=== PATIENT | male | born 1935 | race Caucasian/White ===

== ENCOUNTER 2019-06-20 21:21 | Emergency (ER) | payer MEDICARE, OTHER ==
[~2019-06-20] VITALS: Ht 182.9 cm; Wt 73.2 kg
[2019-06-20 21:26] VITALS: Ht 182.9 cm; Wt 73.2 kg
[2019-06-20] MEDS ORDERED: COUMADIN2 MG PO (21:28)
[2019-06-20] MEDS ORDERED: LYRICA150 MG PO (21:28)
[2019-06-20] MEDS ORDERED: PRAVACHOL20 MG PO (21:28)
[2019-06-20 21:45] LABS: BASOPHILS 0.2 % (0-2); EOSINOPHILS 2.9 % (0-7); HEMATOCRIT 41.5 % (42.0-54.0); HEMOGLOBIN 13.7 g/dL (13.5-17.5); IMMATURE GRANULOCYTES 0.2 % (0-5); LYMPHOCYTES 26.7 % (15-50); MCH 33.1 pg (26.0-34.0); MCV 100.2 fL (80.0-100.0); MEAN PLATELET VOLUME 10.1 fL (7.4-10.4); MONOCYTES 16.9 % (2-11); NEUTROPHILS 53.1 % (40-80); PLATELET COUNT 195 10x3/uL (130-400); RBC 4.14 10x6/uL (4.20-6.10); RDW 14.4 % (11.5-14.5); WBC 5.4 10x3/uL (4.8-10.8)
[2019-06-20 21:54] LABS: APTT 41.5 SECONDS (22.8-39.4); INR 3.11 (0.85-1.17); PROTIME 31.3 SECONDS (11.6-15.0)
[2019-06-20 21:55] LABS: ANION GAP 7.6 mmol/L (8-16); CALCIUM 9.3 mg/dL (8.5-10.1); CARBON DIOXIDE 29.2 mmol/L (21.0-32.0); CREATININE - SERUM 1.2 mg/dL (0.6-1.3); POTASSIUM - SERUM 4.8 mmol/L (3.5-5.1)
[2019-06-20 22:01] LABS: ALBUMIN 3.8 g/dL (3.4-5.0); BILIRUBIN - TOTAL 0.6 mg/dL (0.2-1.3); PROTEIN - SERUM 7.9 g/dL (6.4-8.2)
[2019-06-20 22:17] LABS: APPEARANCE CLEAR (CLEAR); BILIRUBIN NEGATIVE (NEGATIVE); COLOR YELLOW (YELLOW); GLUCOSE NEGATIVE (NEGATIVE); KETONE NEGATIVE (NEGATIVE); NITRITE NEGATIVE (NEGATIVE); PROTEIN NEGATIVE (NEGATIVE); UROBILINOGEN NORMAL (NORMAL)
[2019-06-20 22:18] LABS: WHITE CELLS - URINE 0-5 /hpf (NEGATIVE)
[2019-06-20 22:19] LABS: BACTERIA FEW /hpf (NEGATIVE); MUCUS <1+ /lpf (NONE SEEN)
[2019-06-20 22:23] LABS: UDS - AMPHET NEGATIVE QUAL (NEGATIVE); UDS - BARB NEGATIVE QUAL (NEGATIVE); UDS - BENZO NEGATIVE QUAL (NEGATIVE); UDS - COCAINE NEGATIVE QUAL (NEGATIVE); UDS - OPIATE NEGATIVE QUAL (NEGATIVE); UDS - PCP NEGATIVE QUAL (NEGATIVE); UDS - THC NEGATIVE QUAL (NEGATIVE)
[2019-06-20 23:38] VITALS: BP 118/72
== END 2019-06-20 23:38 | disposition home or self-care (01) ==
LOC: D.ER 21:21
PROVIDERS: Family Medicine
DX: T50.991A Poisoning by other drugs, medicaments and biological substances, accidental (unintentional), initial encounter (principal); F03.90 Unspecified dementia, unspecified severity, without behavioral disturbance, psychotic disturbance, mood disturbance, and anxiety; G30.9 Alzheimer's disease, unspecified

== ENCOUNTER 2019-09-08 12:09 | Inpatient (IN) | payer MEDICARE, OTHER ==
[~2019-09-08] VITALS: Ht 182.9 cm; Wt 67.3 kg
[~2019-09-08 12:09] MED LIST: COUMADIN3 MG PO; LYRICA150 MG PO; PRAVACHOL20 MG PO
[2019-09-08 14:12] LABS: CALC OSMOLALITY 284 mosm/kg (275-300); CALCIUM 8.9 mg/dL (8.5-10.1); CARBON DIOXIDE 31.6 mmol/L (21.0-32.0); CHLORIDE - SERUM 103 mmol/L (98-107); GLUCOSE 95 mg/dL (74-106); POTASSIUM - SERUM 4.5 mmol/L (3.5-5.1); SODIUM 141 mmol/L (136-145); UREA NITROGEN 23 mg/dL (7-18); eGFR NON AFRICAN AMERICAN 75 mL/min (90-120)
[2019-09-08 14:14] LABS: BASOPHILS 0.2 % (0-2); EOSINOPHILS 2.2 % (0-7); HEMATOCRIT 40.7 % (42.0-54.0); HEMOGLOBIN 13.3 g/dL (13.5-17.5); IMMATURE GRANULOCYTES 0.2 % (0-5); LYMPHOCYTES 22.1 % (15-50); MCH 32.9 pg (26.0-34.0); MCHC 32.7 g/dL (31.0-37.0); MCV 100.7 fL (80.0-100.0); MEAN PLATELET VOLUME 10.3 fL (7.4-10.4); MONOCYTES 16.4 % (2-11); NEUTROPHILS 58.9 % (40-80); PLATELET COUNT 189 10x3/uL (130-400); RBC 4.04 10x6/uL (4.20-6.10); RDW 14.9 % (11.5-14.5); WBC 5.1 10x3/uL (4.8-10.8)
[2019-09-08 14:27] LABS: ALBUMIN 3.4 g/dL (3.4-5.0); ALKALINE PHOSPHATASE 77 U/L (46-116); ALT (SGPT) 18 U/L (10-68); BILIRUBIN - TOTAL 0.65 mg/dL (0.2-1.3); MAGNESIUM - SERUM 2.3 mg/dL (1.8-2.4); PROTEIN - SERUM 6.6 g/dL (6.4-8.2); THYROID STIMULATING HORMONE 0.71 uIU/mL (0.36-3.74)
--- NOTE | 2019-09-08 15:00 | NUR ---
URINE TO LAB.
--- NOTE | 2019-09-08 15:05 | NUR ---
SENIOR PSYCH CONTACTED FOR CONSULT.
[2019-09-08 15:10] LABS: APPEARANCE CLEAR (CLEAR); BILIRUBIN NEGATIVE (NEGATIVE); COLOR YELLOW (YELLOW); GLUCOSE NEGATIVE (NEGATIVE); KETONE NEGATIVE (NEGATIVE); NITRITE NEGATIVE (NEGATIVE); PROTEIN NEGATIVE (NEGATIVE); SPECIFIC GRAVITY 1.015 (1.005-1.020); UROBILINOGEN NORMAL (NORMAL)
[2019-09-08 15:39] LABS: UDS - AMPHET NEGATIVE QUAL (NEGATIVE); UDS - BARB NEGATIVE QUAL (NEGATIVE); UDS - BENZO NEGATIVE QUAL (NEGATIVE); UDS - COCAINE NEGATIVE QUAL (NEGATIVE); UDS - OPIATE NEGATIVE QUAL (NEGATIVE); UDS - PCP NEGATIVE QUAL (NEGATIVE); UDS - THC NEGATIVE QUAL (NEGATIVE)
--- NOTE | 2019-09-08 19:30 | NUR ---
PT ARRIVED TO UNIT WITH HOSPITAL STAFF AND SPOUSE KAILASH BY WHEELCHAIR. HE IS ABLE TO AMBULATE WITHOUT DEPUTY DIRECTOR OF PUBLIC WORKS PER . HIS IS A FULL CODE WITH LIVING WILL. KAILASH HIS WILL PROVIDE COPY TOMORROW. HIS CODE WORD IS [id number]. HE HAS GLASSES ON HIS PERSON. PHYSICIAN NOTIFIED.
[2019-09-08 20:00] VITALS: BP 112/73
[2019-09-08 20:46] LABS: CHOL - HDL RATIO 2.2 ratio (2.3-4.9); THYROID STIMULATING HORMONE 0.71 uIU/mL (0.36-3.74)
[2019-09-08 21:59] VITALS: BP 112/73; BMI 25.5
[2019-09-08] MEDS ORDERED: BAYER CHEWABLE81 MG PO (22:35)
[2019-09-08] MEDS ORDERED: XALATAN 0.0052.5 ML EACH EYE (22:36)
[2019-09-08] MEDS ORDERED: CYMBALTA30 MG PO (22:36)
[2019-09-08] MEDS ORDERED: VITAMIN D31000 UNIT PO (22:36)
[2019-09-08] MEDS ORDERED: DONEPEZIL HCL10 MG PO (22:36)
[2019-09-08] MEDS ORDERED: CORGARD20 MG PO (22:37)
[2019-09-08] MEDS ORDERED: LIDOCAINE 5 % O35 GM TOPICAL (22:37)
[2019-09-08] MEDS ORDERED: NAMENDA XR14 MG PO (22:37)
[2019-09-08] MEDS ORDERED: PRAVACHOL20 MG PO (22:39)
[2019-09-08] MEDS ORDERED: LYRICA100 MG PO (22:39)
[2019-09-08] MEDS ORDERED: COUMADIN3 MG PO (22:41)
[2019-09-08] MEDS ORDERED: COUMADIN5 MG PO (22:41)
[2019-09-08] MEDS ORDERED: SEROQUEL25 MG PO (22:42)
--- NOTE | 2019-09-09 03:54 | NUR ---
PT IS RESTLESS IN BED. STATING "I NEED TO PEE BUT I CANT GET ANY TO COME OUT." OFFERED URINAL SEVERAL TIMES WITH NO OUTPUT. BLADDER SCAN REVEALED 558 ML IN THE BLADDER. OFFERED TO IN AND OUT CATH AND PT REFUSED. STATING "YOUR NOT GOING TO PUT THAT THING IN YET ARE YOU?" I INFORMED HIM THAT HE DIDNT HAVE TO YET BUT THAT IT WOULD PROBABLY RELIEVE HIM. HE DECLINED. WILL CONTINUE TO MONITOR.
--- NOTE | 2019-09-09 08:10 | NUR ---
REC'D PT SITTING IN CHAIR AWAITING BREAKFAST. NO ACUTE DISTRESS NOTED. PT IS CONFUSED, ALERT AND ORIENTED TO SELF ONLY. PT AMBULATES WITH ASSITANCE. PT IS COMPLIANT WITH VITALS AND ASSESSMENTS. PT ADMITTED ON PREVIOUS SHIFT FROM ED FOR AGGRESSION. NO AGGRESSION NOTED AT THIS TIME. WILL CONT PLAN OF CARE.
[2019-09-09 09:08] VITALS: BP 145/86
[2019-09-09 10:01] VITALS: Ht 182.9 cm; Wt 67.3 kg
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
[2019-09-10 00:17] VITALS: BP 184/96
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
--- NOTE | 2019-09-10 08:10 | NUR ---
PT LAYING IN BED
[2019-09-10 08:11] LABS: RAPID PLASMA REAGIN Non Reactive (Non Reactive)
[2019-09-10 08:38] LABS: INR 3.4 (0.85-1.17); PROTIME 33.7 SECONDS (11.6-15.0)
[2019-09-10 09:00] VITALS: BP 144/89
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
[2019-09-10 20:00] VITALS: BP 142/95
[2019-09-11 07:36] LABS: INR 3.49 (0.85-1.17); PROTIME 34.4 SECONDS (11.6-15.0)
--- NOTE | 2019-09-11 08:14 | NUR ---
REC'D PT LAYING IN THE BED WITH EYES OPEN. RESP EVEN AND NONLABORED. NO ACUTE DISTRESS NOTED. PT IS ALERT CONFUSED AND ORIENTED TO SELF ONLY. PT IS COMBATIVE WITH CARE. PT REQUIRES ASSISTANCE WITH ADLS. CHAIR ALARM IN PLACE AND ACTIVE. WILL CONT PLAN OF CARE.
[2019-09-11 08:38] VITALS: BP 128/86
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
--- NOTE | 2019-09-11 18:35 | NUR ---
SPOKE WITH ABOUT DISCHARGE AFTER HERE. GAVE HEARING HEALTH TECHNICIAN OFFICE PHONE.
--- NOTE | 2019-09-11 19:38 | NUR ---
PATIENT IS VERY CONFUSED, EASILY AGITATED, PATIENT IS SWINGING AT TECH AND BEING SOMEWHAT COMBATIVE. COMPLIANT WITH MEDS, CAN NOT MAKE NEEDS KNOWN, WILL MONITOR
[2019-09-11 20:32] VITALS: BP 129/75
--- NOTE | 2019-09-11 22:15 | NUR ---
IV LEAKING. DC'D WITH CATHETER INTACT. RESITED TO LEFT UPPER ARM WITH 20 GAUGE IV CATHETER.
--- NOTE | 2019-09-11 23:10 | NUR ---
PT IS RESTLESS AND CLIMBING OUT OF BED. UNABLE TO FOLLOW VERBAL INSTRUCTIONS. PRN ATIVAN IM ADMINISTERED PER ORDERS.
[2019-09-12 07:31] LABS: INR 3.09 (0.85-1.17); PROTIME 31.4 SECONDS (11.6-15.0)
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
[2019-09-12 10:04] VITALS: BP 130/65
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
--- NOTE | 2019-09-12 16:38 | NUR ---
OTHER NURSE SPOKE WITH ABOUT PLACE MENT UPON DISCHARGE. SHE STATED THAT HER FIRST CHOICE WAS THE [facility] [place] AND THE SECOND CHOICE WOULD BE [facility] [place]. NURSE EXPLAINED THAT WE WOULD PASS THE MESSAGE TO NATY THE NOVELTIES SALES REPRESENTATIVE SHE DOES THE DISCHARGE PLANNING. SHE VOICED UNDERSTANDING. NURSE WILL NOTIFY N[employer] SALES REPRESENTATIVE OF PREFERENCE.
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
[2019-09-13 02:06] VITALS: BP 140/70
[2019-09-13 07:14] LABS: INR 2.82 (0.85-1.17); PROTIME 29.2 SECONDS (11.6-15.0)
[2019-09-13 07:31] VITALS: BP 137/81
--- NOTE | 2019-09-13 10:00 | NUR ---
PATIENT IS AWAKE AND VERY CONFUSED. CALM AND COOPERATIVE WITH CARE AND ASSESSMENT. ADMINISTER PRESCRIBED MEDICATIONS. COMPLIANT WITH MEDS. REDIRECT AND REORIENT NEEDED. CONTINUE POC.
--- NOTE | 2019-09-13 13:23 | PN ---
PATIENT:ANI WASHINGTON MEDICAL RECORD: [id number] LOCATION:[facility] ADMISSION DATE: 09/08/19 PROGRESS NOTE DATE OF SERVICE: 09/12/2019 SUBJECTIVE: The patient's case was discussed with staff. He has no new complaint. OBJECTIVE: The patient is in good behavioral control. He has poor insight about his condition. Unfortunately, last night, he was very agitated and required p.r.n. medication. Today, he is somewhat somnolent. ASSESSMENT: Dementia. PLAN: I am going to treat the patient with a low dose of scheduled Klonopin to assist with some of his agitation. He will be monitored for clinical changes associated with its use. His long-term prognosis is guarded. TRANSINT:[id number] Voice Confirmation ID: [id number] DOCUMENT ID: [id number] HIREN RODGERS MD at 1323 CC: [id number] DICTATION DATE: 09/12/19 1203 COCOA ROOM OPERATOR: 09/13/19 0001 ADM IN [facility] [address] [place] [address]
--- NOTE | 2019-09-13 16:06 | NUR ---
Nutrition Follow-up: Diet: Regular PO intake: ~11% average x last 9 meals Last BM: 09/11/19. WT: 188# (09/09/19); Admit wt: 188# (09/08/19) Meds noted: coumadin. No new labs. Continue Regular diet. Will add Ensure to meal trays. Consider adding appetite stimulant as medically feasible. RD following.
[2019-09-13 19:47] VITALS: BP 127/95
--- NOTE | 2019-09-13 23:53 | NUR ---
B.) PT IS ALERT AND ORIENTED TO SELF ONLY. HE IS RECEIVED IN THE DAY ROOM IN HIS ZACK-CHAIR. HE IS RESTLESS AND REFUSES TO STAY IN HIS BED. NO AGGRESSIVE BEHAVIOR NOTED THIS SHIFT. I.) PROVIDED PM MEDICATIONS. REDIRECT OFTEN. R.) COMPLIANT WITH ALL MEDICATIONS. DIFFICULT TO REDIRECT. P.) WILL CONTINUE TO MONITOR.
[2019-09-14 07:42] LABS: INR 2.73 (0.85-1.17); PROTIME 28.5 SECONDS (11.6-15.0)
[2019-09-14 08:46] VITALS: BP 151/89
--- NOTE | 2019-09-14 10:19 | NUR ---
PATIENT IS AWAKE AND ALERT. CALM AND COOPERATIVE WITH CARE AND ASSESSMENT. NO AGGRESSIVE BEHAVIORS NOTED. ADMINISTER PRESCRIBED MEDICATIONS. COMPLIANT WITH MEDS. REDIRECT AND REORIENT NEEDED. MONITOR FOR CHANGES AND CONTINUE POC.
--- NOTE | 2019-09-14 15:20 | PN ---
PATIENT:ANI WASHINGTON MEDICAL RECORD: [id number] LOCATION:[facility] ADMISSION DATE: 09/08/19 PROGRESS NOTE DATE OF SERVICE: 09/13/2019 SUBJECTIVE: The patient's case was discussed with staff. He has no new complaint. OBJECTIVE: The patient is minimally interactive with pretty limited insight about his situation. His oral intake is unfortunately poor. ASSESSMENT: Dementia. PLAN: I am going to taper the patient's Lyrica. I am not entirely sure about its clinical indication in this patient and then concerned that it may be having some potential side effects. Those side effects might include some irritability and even sedation. TRANSINT:[id number] Voice Confirmation ID: [id number] DOCUMENT ID: [id number] HIREN RODGERS MD at 1520 CC: [id number] DICTATION DATE: 09/13/19 1633 INDUSTRIAL ANALYST: 09/13/19 2315 ADM IN [facility] [address] [place] [address]
--- NOTE | 2019-09-14 21:53 | NUR ---
REC'D SITTING IN THE DAYROOM. CONFUSED AND DISORIENTED. POOR INTERACTION WITH STAFF. ADMINISTER MEDS AND MONITOR COMPLIANCE. REDIRECT FOR AGGRESSIVE BEHAVIOR. MED COMPLIANT. POOR REDIRECTION DUE TO IMPAIRED ABILITY TO PROCESS, COMPREHEND AND RETAIN INFORMATION.
[2019-09-14 22:44] VITALS: BP 113/72
--- NOTE | 2019-09-15 08:00 | NUR ---
PATIENT IS AWAKE AND ALERT. NO AGGRESSIVE BEHAVIORS. CALM AND COOPERATIVE WITH CARE AND ASSESSMENT. REDIRECT AND REORIENT NEEDED. CONTINUE PLAN OF CARE.
[2019-09-15 10:18] LABS: INR 3.78 (0.85-1.17); PROTIME 36.6 SECONDS (11.6-15.0)
--- NOTE | 2019-09-15 11:34 | PN ---
PATIENT:ANI WASHINGTON MEDICAL RECORD: [id number] LOCATION:[facility] ADMISSION DATE: 09/08/19 PROGRESS NOTE DATE OF SERVICE: 09/14/2019 SUBJECTIVE: The patient's case was discussed with staff. He has no new complaint. OBJECTIVE: The patient is participating in treatment reasonably well. He still did not sleep last night, but the Klonopin has not really had enough ____ to become significantly effective. ASSESSMENT: Dementia. PLAN: Current medicines have been reviewed and will be maintained with the exception of the Cymbalta, which will be increased slightly. He will be monitored for clinical changes associated with its use. His long-term prognosis is guarded. I anticipate he can be transitioned out of the hospital soon if this level of improvement continues. TRANSINT:[id number] Voice Confirmation ID: [id number] DOCUMENT ID: [id number] HIREN RODGERS MD at 1134 CC: [id number] DICTATION DATE: 09/14/19 1522 RAILCAR BRAKE OPERATOR: 09/14/19 2159 ADM IN [place] [id number] [place] [id number]
--- NOTE | 2019-09-15 12:34 | NUR ---
REFUSED MEDS THIS AM AND SPIT MEDS OUT WHEN NURSE ATTEMPTED TO GIVE WITH FOOD.
[2019-09-15 16:56] VITALS: BP 140/70
[2019-09-15 20:04] VITALS: BP 150/90
--- NOTE | 2019-09-16 00:28 | NUR ---
B)RECEIVED SITTING IN THE DAYROOM. CONFUSED AND DISORIENTED. UNABLE TO FOLLOW TOPIC OF CONVERSATION OR VERBAL INSTRUCTIONS. I)ADMINISTER MEDS AND MONITOR COMPLIANCE. REORIENT NEEDED. R)MED COMPLIANT. POOR REORIENTATION DUE TO IMPAIRED ABILITY TO COMPREHEND, PROCESS AND RETAIN INFORMATION. P)CONTINUE POC AND PROVIDE SAFE ENVIRONMENT.
[2019-09-16 08:05] LABS: INR 3.18 (0.85-1.17)
--- NOTE | 2019-09-16 10:02 | NUR ---
PT SITTING IN CHAIR WITH EYES CLOSED. PT IS DROWSY THIS A.M. DID NOT RESPOND WHEN SPOKEN TO. NURSE HELD KLONPIN 0.25 MG THIS SHIFT. WILL REASSESS PTS ORIENTION LATER. PT IS SEMI ALERT AND CONFUSED. PT IS COMPLIANT WITH MEDS, VITALS AND ASSESSMENTS. CHAIR ALARM IN PLACE AND ACTIVE. PHYSICAL THERAPY CAME TO WORK WITH PT COULD NOT DUE TO HIM BEING DROWSY. DIMINSHED BREATH SOUNDS NOTED. NO COUGH NOTED. WILL CONT PLAN OF CARE.
[2019-09-16 10:33] VITALS: BP 137/81
--- NOTE | 2019-09-16 10:35 | NUR ---
NURSE ORDERED CHEST X-RAY DUE TO PT PRODUCING GREEN MUCOUS SPUTUM AND GREEN NASAL DRIP. WITH INSPIRATORY WHEEZES AND DIMINISHED BREATH SOUNDS.
--- NOTE | 2019-09-16 10:59 | NUR ---
SW SPOKE TO PT'S SPOUSE AND PT WILL BE DISCHARGING FRIDAY TO [facility]. PT'S SPOUSE EXPRESSED GRATITUDE FOR SERVICE AND UNDERSTANDING OF DISCUSSION.
--- NOTE | 2019-09-16 14:45 | NUR ---
Nutrition Follow-up: Chart reviewed noted that patient is refusing food and meds. Diet: Regular + Ensure with meals PO intake: ~24% average x last 9 meals Last BM: 09/15/19. WT: 188# (09/09/19)- refused wt on 09/12/19. Admit wt: 180# (09/08/19) Meds noted: coumadin. No new labs. Continue current diet. Encourage PO intake. Consider adding appetite stimulant as medically feasible. RD following.
--- NOTE | 2019-09-16 15:55 | PN ---
PATIENT:ANI WASHINGTON MEDICAL RECORD: [id number] LOCATION:[facility] ADMISSION DATE: 09/08/19 PROGRESS NOTE DATE OF SERVICE: 09/15/2019 SUBJECTIVE: The patient's case was discussed with staff. He has no new complaint. OBJECTIVE: The patient is in good behavioral control. He has not been disruptive or significantly aggressive. He is poorly oriented. ASSESSMENT: Dementia. PLAN: Current medicines have been reviewed and will be maintained. His long-term prognosis is guarded. I anticipate he can be transitioned out of the hospital soon if this level of improvement continues. TRANSINT:[id number] Voice Confirmation ID: [id number] DOCUMENT ID: [id number] HIREN RODGERS MD at 1555 CC: [id number] DICTATION DATE: 09/15/19 1620 OIL FIRE SPECIALIST: 09/16/19 0150 ADM IN [facility] [address] [place] [id number]
[2019-09-16 20:13] VITALS: BP 140/70
--- NOTE | 2019-09-16 21:05 | NUR ---
B)RECEIVED PATEINT IN THE DAYROOM. SITTING TO SELF. ORIENTED TO SELF ONLY. INCORRECT ANSWERS TO QUESTIONS. I)ADMINISTER MEDS AND MONITOR COMPLIANCE. REORIENT NEEDED. R)MED COMPLIANT. POOR REORIENTATION DUE TO IMPAIRED TO PROCESS AND RETAIN INFORMATION. P)CONTINUE POC AND PROVIDE SAFE ENVIRONMENT.
--- NOTE | 2019-09-17 00:48 | NUR ---
PT ATTEMPTING TO GET OUT OF BED. RESTLESS. YELLING OUT DISRUPTING PATIENTS. HALDOL AND ATIVAN IM ADMINISTERED BY Melodie GRIER RN PER PHYSICIAN ORDERS.
--- NOTE | 2019-09-17 08:07 | NUR ---
PT SITTING IN WHEELCHAIR WITH EYES CLOSED. RESP EVEN AND NONLABORED. DIMINISHED BREATH SOUNDS NOTED AT THIS TIME. PT IS VERY DROWSY AT THIS TIME. WILL RESPOND TO NAME AT TIMES. PT IS VERY CONFUSED WITH POOR INSIGHT TO SITUATION. PT IS COMPLIANT WITH MEDS AND VITALS. WILL CONT PLAN OF CARE.
[2019-09-17] MEDS ORDERED: CYMBALTA20 MG PO (10:00)
[2019-09-17] MEDS ORDERED: LYRICA75 MG PO (10:00)
[2019-09-17] MEDS ORDERED: GEODON20 MG PO (10:01)
[2019-09-17] MEDS ORDERED: VITAMIN B-12250 MC3 PO (10:02)
[2019-09-17 10:59] VITALS: BP 146/85
--- NOTE | 2019-09-17 12:02 | NUR ---
CALLED REPORT TO RUFINO AT [facility]. PICKUP TIME SCHEDULED FOR 1400. NURSE CALLED KAILASH TO LET HER KNOW THE PICKUP TIME. NO ANSWER. WILL ATTEMPT TO CONTACT AGAIN BEFORE DISCHARGE.
--- NOTE | 2019-09-17 14:20 | PN ---
PATIENT:ANI WASHINGTON MEDICAL RECORD: [id number] LOCATION:[facility] ADMISSION DATE: 09/08/19 PROGRESS NOTE DATE OF SERVICE: 09/16/2019 SUBJECTIVE: The patient's case was discussed with staff and the chart was reviewed. OBJECTIVE: The patient denies intent to harm himself or others. He generally tolerates his medicines well. ASSESSMENT: Dementia. PLAN: The patient is significantly impaired. He appears a little drowsy today. I am going to hold his Klonopin for the time being and will reduce the dose of Lyrica. TRANSINT:[id number] Voice Confirmation ID: [id number] DOCUMENT ID: [id number] HIREN RODGERS MD at 1420 CC: [id number] DICTATION DATE: 09/16/19 1558 POWDER LOADER: 09/16/19 1654 ADM IN [facility] [address] [place] [id number]
--- NOTE | 2019-09-17 15:20 | NUR ---
PT DISCHARGED TO [facility] THIS SHIFT. PT TRANSFERED TO WHEELCHAIR TO TRANSPORT. PT STABLE AT THIS TIME. PT 2X ASSIST INTO W/C. WALKED OUT TO [facility]ILITY [facility]. PERSONAL BELONGINGS SENT WITH PT. AND PAPERCOPY SENT WITH PT. COPY FAXED TO FACILITY. ATTEMPTED TO CONTACT IN REGARDS TO PT LEAVING. NO ANSWER AT THIS TIME.
--- NOTE | 2019-09-18 10:30 | PN ---
PATIENT:ANI WASHINGTON MEDICAL RECORD: [id number] LOCATION:[facility] ADMISSION DATE: 09/08/19 PROGRESS NOTE DATE OF SERVICE: 09/17/2019 SUBJECTIVE: The patient's case was discussed with staff. He has no new complaint. OBJECTIVE: The patient is somewhat sedated. He is cooperative and not aggressive in any way. He has no thoughts of harming himself. ASSESSMENT: 1. Dementia. 2. Major depression. PLAN: The patient will be transitioned out of the hospital today. He will be followed on an outpatient basis by his primary care physician. I believe his condition is slightly more advanced than what I would recommend in the assisted living center, but I do not think it is wildly inappropriate to place him there and I do not think he is a danger to others. The assisted living center has evaluated him and reviewed our notes and has accepted him. His long-term prognosis is somewhat questionable. His condition is degenerative and at some point, I would anticipate behavior problems. In addition to this, his oral intake is diminished, and unless that improves obviously his long-term prognosis is not at all good. TRANSINT:[id number] Voice Confirmation ID: [id number] DOCUMENT ID: [id number] HIREN RODGERS MD at 1030 CC: [id number] DICTATION DATE: 09/17/19 1635 COLLATOR: 09/18/19 0037 DIS IN 09/17/19 [facility] [address] [place] [address]
== END 2019-09-17 16:01 | DRG 57 ==
LOC: D.ER 12:09 → D.PSYCH 17:21
PROVIDERS: Family Medicine; ADMIT Psychiatry & Neurology Psychiatry; ATTEND Psychiatry & Neurology Psychiatry
DX: G30.1 Alzheimer's disease with late onset (principal); F02.81 Dementia in other diseases classified elsewhere, unspecified severity, with behavioral disturbance; I48.91 Unspecified atrial fibrillation; E78.5 Hyperlipidemia, unspecified; K59.00 Constipation, unspecified; I50.9 Heart failure, unspecified; H40.9 Unspecified glaucoma

== ENCOUNTER 2019-11-01 19:20 | Emergency (ER) | payer MEDICARE, OTHER ==
[~2019-11-01] VITALS: Ht 182.9 cm; Wt 85.7 kg
[~2019-11-01 19:20] MED LIST changes: +BAYER CHEWABLE81 MG PO; +CORGARD20 MG PO; +COUMADIN5 MG PO; +CYMBALTA20 MG PO; +CYMBALTA30 MG PO; +DONEPEZIL HCL10 MG PO; +GEODON20 MG PO; +LIDOCAINE 5 % O35 GM TOPICAL; +LYRICA100 MG PO; +LYRICA75 MG PO; +NAMENDA XR14 MG PO; +SEROQUEL25 MG PO; +VITAMIN B-12250 MC3 PO; +VITAMIN D31000 UNIT PO; +XALATAN 0.0052.5 ML EACH EYE
[2019-11-01 19:31] VITALS: Ht 182.9 cm; Wt 85.7 kg
[2019-11-01 22:15] LABS: APTT 30.3 SECONDS (22.8-39.4); CALC OSMOLALITY 280 mosm/kg (275-300); CALCIUM 9.2 mg/dL (8.5-10.1); CARBON DIOXIDE 30.2 mmol/L (21.0-32.0); CHLORIDE - SERUM 104 mmol/L (98-107); CREATININE - SERUM 0.9 mg/dL (0.6-1.3); GLUCOSE 114 mg/dL (74-106); INR 1.37 (0.85-1.17); POTASSIUM - SERUM 3.6 mmol/L (3.5-5.1); PROTIME 16.7 SECONDS (11.6-15.0); SODIUM 139 mmol/L (136-145); UREA NITROGEN 19 mg/dL (7-18); eGFR NON AFRICAN AMERICAN 85 mL/min (90-120)
[2019-11-01 22:24] LABS: BASOPHILS 0 % (0-2); EOSINOPHILS 1.2 % (0-7); HEMATOCRIT 38.5 % (42.0-54.0); IMMATURE GRANULOCYTES 0.2 % (0-5); LYMPHOCYTES 11.9 % (15-50); MCH 33.2 pg (26.0-34.0); MCHC 33.8 g/dL (31.0-37.0); MCV 98.2 fL (80.0-100.0); MEAN PLATELET VOLUME 10.4 fL (7.4-10.4); MONOCYTES 12.8 % (2-11); NEUTROPHILS 73.9 % (40-80); PLATELET COUNT 185 10x3/uL (130-400); RBC 3.92 10x6/uL (4.20-6.10); WBC 8.5 10x3/uL (4.8-10.8)
[2019-11-01 22:28] LABS: BILIRUBIN NEGATIVE (NEGATIVE); GLUCOSE NEGATIVE (NEGATIVE); KETONE NEGATIVE (NEGATIVE); NITRITE NEGATIVE (NEGATIVE); UROBILINOGEN NORMAL (NORMAL)
[2019-11-01 22:30] LABS: BACTERIA FEW /hpf (NEGATIVE); WHITE CELLS - URINE 0-5 /hpf (NEGATIVE)
[2019-11-01 22:32] LABS: UDS - AMPHET NEGATIVE QUAL (NEGATIVE); UDS - BARB NEGATIVE QUAL (NEGATIVE); UDS - BENZO NEGATIVE QUAL (NEGATIVE); UDS - COCAINE NEGATIVE QUAL (NEGATIVE); UDS - OPIATE NEGATIVE QUAL (NEGATIVE); UDS - PCP NEGATIVE QUAL (NEGATIVE); UDS - THC NEGATIVE QUAL (NEGATIVE)
[2019-11-01 22:45] LABS: ALBUMIN 3.3 g/dL (3.4-5.0); ALKALINE PHOSPHATASE 65 U/L (30-120); ALT (SGPT) 25 U/L (10-68); BILIRUBIN - TOTAL 1.24 mg/dL (0.2-1.3); CKMB 1.2 U/L (0.0-3.6); CREATINE KINASE 161 UL (21-232); PROTEIN - SERUM 6.9 g/dL (6.4-8.2); THYROID STIMULATING HORMONE 1.03 uIU/mL (0.36-3.74); TROPONIN-I < 0.017 ng/mL (0.000-0.060)
[2019-11-02 01:00] VITALS: BP 162/70
== END 2019-11-02 01:05 ==
LOC: D.ER 19:20
PROVIDERS: Family Medicine
DX: M79.605 Pain in left leg (principal); M79.604 Pain in right leg; W19.XXXA Unspecified fall, initial encounter; Y93.9 Activity, unspecified; Y92.129 Unspecified place in nursing home as the place of occurrence of the external cause; G30.9 Alzheimer's disease, unspecified; F02.80 Dementia in other diseases classified elsewhere, unspecified severity, without behavioral disturbance, psychotic disturbance, mood disturbance, and anxiety; I48.91 Unspecified atrial fibrillation